=== PATIENT | male | born 1955 | race African-American/Black ===

== ENCOUNTER 2023-09-07 09:51 | Inpatient (IN) | payer MEDICARE, OTHER ==
[2023-09-07 12:46] LABS: #Eosinphils 0.1 thou/uL (0.0-0.7); #Monocytes 0.9 thou/uL (0.11-0.59); #Neutrophils 9.3 thou/uL (1.40-6.50); %Basophils 0.2 % (0.0-1.0); %Eosinophils 0.7 % (0.0-10.0); %Lymphocytes 14.4 % (21.0-51.0); %Monocytes 7.1 % (0.0-10.0); %Neutrophils 76.9 % (42.0-75.0); Hematocrit 29.2 % (42.0-52.0); Hemoglobin 9.5 g/dL (14.0-18.0); Mean Corpuscular HGB CONC 32.5 g/dL (32.0-36.0); Mean Corpuscular Hemoglobin 27.5 pg (27.0-31.0); Mean Corpuscular Volume 84.4 fl (78.0-98.0); Mean Platelet Volume 10.2 fL (7.4-10.4); Platelet Count 340 10x3/uL (130-400); RBC Distribution Width 13.9 % (11.5-14.5); Red Blood Cell (RBC) Count 3.46 mill/uL (4.70-6.10)
[2023-09-07 13:08] LABS: ALT (SGPT) 12 U/L (8-55); AST (SGOT) 37 U/L (5-34); Albumin 3.4 g/dL (3.4-4.8); Alkaline Phosphatase 76 U/L (40-110); Anion Gap 15 mmol/L (10-20); BUN (Urea Nitrogen) 13 mg/dL (8.4-25.7); Bilirubin, Total 0.9 mg/dL (0.2-1.2); Calc. Creatinine Clearance 0 mL/min (70-130); Carbon Dioxide 35 mmol/L (23-31); Chloride 87 mmol/L (98-107); Estimated GFR 88; Globulin 3.2 g/dL (2.4-3.5); Glucose 151 mg/dL (80-115); Protein, Total 6.6 g/dL (5.8-8.1); Sodium 135 mmol/L (136-145)
[2023-09-07 13:11] LABS: Troponin I 0.117 ng/mL (< 0.028)
[2023-09-07 13:12] LABS: Calcium 6.7 mg/dL (7.8-10.44); Critical Call Chemistry NUR.KR7@1311; Potassium 2.2 mmol/L (3.5-5.1)
[2023-09-07] MEDS ORDERED: Aspirin Chewable 81 MG TAB ONE (14:18)
[2023-09-07] MEDS ORDERED: Potassium Chloride 20 MEQ (100 mL) BAG ONE (14:18)
[2023-09-07] MEDS ORDERED: Potassium Chloride 20 MEQ TAB ONE (14:18)
[2023-09-07] MEDS ORDERED: Magnesium 2 GM/50 ML BAG (IN WATER) ONE (14:18)
[2023-09-07 14:19] LABS: Critical Call Chemistry NUR.LM21@1418; Magnesium 0.8 mg/dL (1.6-2.6)
[2023-09-07 14:35] LABS: CK (CPK) 1353 U/L (30-200)
[2023-09-07] MEDS ORDERED: Calcium Gluc 4.6 MEQ/10 ML (100 MG/ML) SLOW IVP ONE (14:49)
[2023-09-07 14:58] LABS: Magnesium 0.9 mg/dL (1.6-2.6)
[2023-09-07] MEDS ORDERED: Magnesium 2 GM/50 ML(in water) 2 GM in Premix 1 BAG IVPB SCH (15:00)
[2023-09-07] MEDS ORDERED: Sodium Chloride 0.9% 1,000 ML IV SCH (15:00)
[2023-09-07] MEDS ORDERED: Potassium Chloride 20 MEQ TAB PO SCH ×2 (15:15→20:00)
[2023-09-07] MEDS ORDERED: CALCIUM GLUC 1 GM/NS 50 ML 1 GM in Premix 1 BAG IVPB SCH (15:15)
[2023-09-07 15:35] LABS: Bilirubin Negative (Negative); Blood, Urine Trace (Negative); CAUTI Indications for Culture < 2yrs of age; Clarity Clear (Clear); Glucose, Urine (Dipstick) Normal (Negative); Ketone, Urine Negative (Negative); Leukocyte 250 Leu/uL (Negative); Nitrite Negative (Negative); Protein, Urine (Dipstick) Negative (Neg-Trace); RBC/HPF 0-3 HPF (0-3); Specific Gravity, Urine 1.003 (1.002-1.036); Squamous Epithelial None Seen HPF (0-3); Urobilinogen Normal mg/dL (Less than 2); WBC/HPF 0-3 HPF (0-3)
[2023-09-07 15:38] LABS: Bacteria/HPF 1+ HPF (None Seen)
[2023-09-07 15:39] LABS: Sperm/HPF 1+ HPF (None Seen)
[2023-09-07 15:40] LABS: Urine Culture Reflex Yes Yes
[2023-09-07] MEDS ORDERED: CALCIUM GLUC 1 GM (50 ML) BAG ONE (16:29)
[2023-09-07 17:12] LABS: Iron 24 ug/dL (65-175); Iron Binding Capacity, Total 230 mcg/dL (261-462)
[2023-09-07] MEDS: Sodium Chloride 0.9% 1,000 ML IV SCH (17:15)
[2023-09-07] MEDS ORDERED: Potassium Chloride 20 MEQ in Premix 1 BAG IVPB SCH (18:15)
[2023-09-07] MEDS ORDERED: Magnesium Sulfate 3 GM in Sodium Chloride 0.9% 100 ML IVPB SCH (18:15)
[2023-09-07] MEDS: CALCIUM GLUC 1 GM/NS 50 ML 1 GM in Premix 1 BAG IVPB SCH ×2 (18:42→20:38)
[2023-09-07] MEDS ORDERED: Ondansetron ODT 4 MG TAB SL PRN (19:00)
[2023-09-07] MEDS ORDERED: Ondansetron PF 4 MG/2 ML Vial IVP PRN (19:00)
[2023-09-07] MEDS ORDERED: Acetaminophen 325 MG TAB PO PRN (19:00)
[2023-09-07 19:54] LABS: Thyroid Stimulating Hormone 0.2629 uIU/mL (0.35-4.94)
[2023-09-07 19:55] LABS: Vitamin D, 25 Hydroxy 8.2 ng/ml (> 30.0)
[2023-09-07 20:00] LABS: Ferritin 130.82 ng/mL (22-322); Free T4 (Free Thyroxine) 0.94 ng/dL (0.70-1.48)
[2023-09-07 20:17] LABS: Magnesium 1.2 mg/dL (1.6-2.6)
[2023-09-07 20:18] LABS: Troponin I 0.155 ng/mL (< 0.028)
[2023-09-07 20:28] LABS: Critical Call Chemistry NUR.BR6@2027; Potassium 2.4 mmol/L (3.5-5.1)
[2023-09-07] MEDS ORDERED: Electrolyte Replacement Protocol 1 EACH FS SCH (20:45)
[2023-09-07] MEDS: Potassium Chloride 40 MEQ in Sodium Chloride 0.9% 250 ML 250 ML IVPB SCH (22:17)
[2023-09-08] MEDS: Sodium Chloride 0.9% 1,000 ML IV SCH
[2023-09-08 00:19] LABS: Anion Gap 13 mmol/L (10-20); BUN (Urea Nitrogen) 10 mg/dL (8.4-25.7); Calc. Creatinine Clearance 94 mL/min (70-130); Carbon Dioxide 35 mmol/L (23-31); Chloride 92 mmol/L (98-107); Estimated GFR 94; Glucose 162 mg/dL (80-115); Magnesium 1.5 mg/dL (1.6-2.6); Phosphorus 3.2 mg/dL (2.3-4.7); Sodium 138 mmol/L (136-145)
[2023-09-08 00:21] LABS: Critical Call Chemistry NUR.BR6@0021; Potassium 2.3 mmol/L (3.5-5.1)
[2023-09-08] MEDS ORDERED: Magnesium 2 GM/50 ML(in water) 2 GM in Premix 1 BAG IVPB SCH ×2 (00:30→08:00)
[2023-09-08] MEDS: Potassium Chloride 40 MEQ in Sodium Chloride 0.9% 250 ML 250 ML IVPB SCH (03:50)
[2023-09-08 04:55] VITALS: BMI 29.0
[2023-09-08 05:39] LABS: #Eosinphils 0.1 thou/uL (0.0-0.7); #Monocytes 0.5 thou/uL (0.11-0.59); #Neutrophils 6.2 thou/uL (1.40-6.50); %Basophils 0.5 % (0.0-1.0); %Eosinophils 0.9 % (0.0-10.0); %Lymphocytes 11.9 % (21.0-51.0); %Monocytes 6.5 % (0.0-10.0); %Neutrophils 79.8 % (42.0-75.0); Hematocrit 28.9 % (42.0-52.0); Hemoglobin 9.5 g/dL (14.0-18.0); Mean Corpuscular HGB CONC 32.9 g/dL (32.0-36.0); Mean Corpuscular Hemoglobin 27.8 pg (27.0-31.0); Mean Corpuscular Volume 84.5 fl (78.0-98.0); Mean Platelet Volume 10.4 fL (7.4-10.4); Platelet Count 295 10x3/uL (130-400); RBC Distribution Width 13.9 % (11.5-14.5); Red Blood Cell (RBC) Count 3.42 mill/uL (4.70-6.10); White Blood Cell (WBC) Count 7.8 10x3/uL (4.8-10.8)
[2023-09-08 06:01] LABS: Anion Gap 13 mmol/L (10-20); BUN (Urea Nitrogen) 10 mg/dL (8.4-25.7); Calc. Creatinine Clearance 107 mL/min (70-130); Carbon Dioxide 34 mmol/L (23-31); Chloride 96 mmol/L (98-107); Estimated GFR 97; Glucose 171 mg/dL (80-115); Magnesium 1.8 mg/dL (1.6-2.6); Sodium 140 mmol/L (136-145)
[2023-09-08 06:06] LABS: Calcium 6.8 mg/dL (7.8-10.44); Potassium 2.6 mmol/L (3.5-5.1)
[2023-09-08] MEDS: Enoxaparin 40 MG (0.4 mL) SYRINGE SC SCH (09:47)
[2023-09-08 10:38] LABS: Potassium 3.1 mmol/L (3.5-5.1)
[2023-09-08] MEDS ORDERED: Potassium Chloride 20 MEQ TAB PO SCH ×2 (11:30→21:15)
[2023-09-08 15:46] LABS: ALT (SGPT) 15 U/L (8-55); AST (SGOT) 43 U/L (5-34); Albumin 3.3 g/dL (3.4-4.8); Alkaline Phosphatase 72 U/L (40-110); Anion Gap 12 mmol/L (10-20); BUN (Urea Nitrogen) 10 mg/dL (8.4-25.7); Bilirubin, Total 0.8 mg/dL (0.2-1.2); Calc. Creatinine Clearance 107 mL/min (70-130); Calcium 7.4 mg/dL (7.8-10.44); Carbon Dioxide 33 mmol/L (23-31); Chloride 97 mmol/L (98-107); Estimated GFR 97; Globulin 3.6 g/dL (2.4-3.5); Glucose 190 mg/dL (80-115); Magnesium 1.8 mg/dL (1.6-2.6); Potassium 3.1 mmol/L (3.5-5.1); Protein, Total 6.9 g/dL (5.8-8.1); Sodium 139 mmol/L (136-145)
[2023-09-08 16:01] LABS: Potassium 3.1 mmol/L (3.5-5.1)
[2023-09-08] MEDS ORDERED: HumaLOG 300 UNITS/3 ML VIAL SC SCH (21:30)
[2023-09-09] MEDS ORDERED: Potassium Chloride 20 MEQ TAB PO SCH ×2 (09:00→14:15)
[2023-09-09] MEDS ORDERED: CALCIUM GLUC 1 GM/NS 50 ML 1 GM in Premix 1 BAG IVPB SCH (09:30)
[2023-09-09] MEDS: Lactated Ringer's 1,000 ML IV SCH ×2 (09:51→20:44)
[2023-09-09] MEDS: Enoxaparin 40 MG (0.4 mL) SYRINGE SC SCH (09:51)
[2023-09-09] MEDS: Magnesium Oxide 400 MG TAB PO SCH (09:51)
[2023-09-09 13:33] LABS: #Basophils 0.1 thou/uL (0.0-0.2); #Eosinphils 0.1 thou/uL (0.0-0.7); #Monocytes 0.5 thou/uL (0.11-0.59); #Neutrophils 5.4 thou/uL (1.40-6.50); %Basophils 0.8 % (0.0-1.0); %Eosinophils 1.9 % (0.0-10.0); %Lymphocytes 17.9 % (21.0-51.0); %Monocytes 7.1 % (0.0-10.0); %Neutrophils 71.8 % (42.0-75.0); Hematocrit 34.9 % (42.0-52.0); Mean Corpuscular HGB CONC 31.5 g/dL (32.0-36.0); Mean Corpuscular Hemoglobin 27.4 pg (27.0-31.0); Mean Corpuscular Volume 86.8 fl (78.0-98.0); Mean Platelet Volume 10.4 fL (7.4-10.4); Platelet Count 323 10x3/uL (130-400); RBC Distribution Width 14.1 % (11.5-14.5); Red Blood Cell (RBC) Count 4.02 mill/uL (4.70-6.10); White Blood Cell (WBC) Count 7.5 10x3/uL (4.8-10.8)
[2023-09-09 13:58] LABS: Anion Gap 18 mmol/L (10-20); BUN (Urea Nitrogen) 7 mg/dL (8.4-25.7); Calc. Creatinine Clearance 111 mL/min (70-130); Carbon Dioxide 24 mmol/L (23-31); Chloride 98 mmol/L (98-107); Estimated GFR 97; Glucose 185 mg/dL (80-115); Magnesium 1.6 mg/dL (1.6-2.6); Potassium 3.5 mmol/L (3.5-5.1); Sodium 136 mmol/L (136-145)
[2023-09-09] MEDS ORDERED: Magnesium 2 GM/50 ML(in water) 2 GM in Premix 1 BAG IVPB SCH (14:15)
[2023-09-10 03:19] LABS: Campy jejuni + coli by PCR Negative (Negative); STEC Shiga Toxin 1+2 Negative (Negative); Salmonella spp. by PCR Negative (Negative); Shigella spp + EIEC by PCR Negative (Negative)
[2023-09-10 05:53] LABS: #Basophils 0.1 thou/uL (0.0-0.2); #Eosinphils 0.2 thou/uL (0.0-0.7); #Monocytes 0.5 thou/uL (0.11-0.59); #Neutrophils 4.7 thou/uL (1.40-6.50); %Basophils 0.9 % (0.0-1.0); %Eosinophils 2.7 % (0.0-10.0); %Monocytes 6.7 % (0.0-10.0); %Neutrophils 69.4 % (42.0-75.0); Hematocrit 31.9 % (42.0-52.0); Hemoglobin 10.2 g/dL (14.0-18.0); Mean Corpuscular Hemoglobin 27.4 pg (27.0-31.0); Mean Corpuscular Volume 85.8 fl (78.0-98.0); Mean Platelet Volume 9.6 fL (7.4-10.4); Platelet Count 343 10x3/uL (130-400); RBC Distribution Width 14.1 % (11.5-14.5); Red Blood Cell (RBC) Count 3.72 mill/uL (4.70-6.10); White Blood Cell (WBC) Count 6.7 10x3/uL (4.8-10.8)
[2023-09-10] MEDS: Lactated Ringer's 1,000 ML IV SCH ×2 (05:58→14:42)
[2023-09-10 06:29] LABS: Anion Gap 15 mmol/L (10-20); BUN (Urea Nitrogen) 6 mg/dL (8.4-25.7); CK (CPK) 981 U/L (30-200); Calc. Creatinine Clearance 119 mL/min (70-130); Calcium 8.2 mg/dL (7.8-10.44); Carbon Dioxide 31 mmol/L (23-31); Chloride 98 mmol/L (98-107); Estimated GFR 99; Glucose 128 mg/dL (80-115); Magnesium 1.6 mg/dL (1.6-2.6); Sodium 141 mmol/L (136-145)
[2023-09-10] MEDS ORDERED: Magnesium 2 GM/50 ML(in water) 2 GM in Premix 1 BAG IVPB SCH (08:45)
[2023-09-10] MEDS ORDERED: Potassium Chloride 20 MEQ TAB PO SCH ×2 (08:45→17:00)
[2023-09-10] MEDS: Enoxaparin 40 MG (0.4 mL) SYRINGE SC SCH (09:12)
[2023-09-10] MEDS: Magnesium Oxide 400 MG TAB PO SCH (09:17)
[2023-09-10] MEDS: Potassium Chloride 20 MEQ TAB PO SCH (17:39)
[2023-09-11] MEDS: Lactated Ringer's 1,000 ML IV SCH ×3 (01:55→22:14)
[2023-09-11 06:26] LABS: #Basophils 0.1 thou/uL (0.0-0.2); #Eosinphils 0.2 thou/uL (0.0-0.7); #Monocytes 0.5 thou/uL (0.11-0.59); %Eosinophils 2.7 % (0.0-10.0); %Lymphocytes 20.4 % (21.0-51.0); %Monocytes 7.7 % (0.0-10.0); Hematocrit 31.3 % (42.0-52.0); Hemoglobin 10.1 g/dL (14.0-18.0); Mean Corpuscular HGB CONC 32.3 g/dL (32.0-36.0); Mean Corpuscular Hemoglobin 27.4 pg (27.0-31.0); Mean Corpuscular Volume 85.1 fl (78.0-98.0); Mean Platelet Volume 9.6 fL (7.4-10.4); Platelet Count 368 10x3/uL (130-400); RBC Distribution Width 13.7 % (11.5-14.5); Red Blood Cell (RBC) Count 3.68 mill/uL (4.70-6.10); White Blood Cell (WBC) Count 5.9 10x3/uL (4.8-10.8)
[2023-09-11 06:42] LABS: ALT (SGPT) 16 U/L (8-55); AST (SGOT) 33 U/L (5-34); Albumin 3.3 g/dL (3.4-4.8); Alkaline Phosphatase 73 U/L (40-110); Anion Gap 13 mmol/L (10-20); BUN (Urea Nitrogen) 5 mg/dL (8.4-25.7); Calc. Creatinine Clearance 120 mL/min (70-130); Calcium 8.2 mg/dL (7.8-10.44); Carbon Dioxide 29 mmol/L (23-31); Chloride 100 mmol/L (98-107); Estimated GFR 100; Globulin 3.8 g/dL (2.4-3.5); Glucose 131 mg/dL (80-115); Magnesium 1.5 mg/dL (1.6-2.6); Potassium 3.4 mmol/L (3.5-5.1); Protein, Total 7.1 g/dL (5.8-8.1); Sodium 139 mmol/L (136-145)
[2023-09-11] MEDS: Potassium Chloride 20 MEQ TAB PO SCH ×3 (07:49→17:36)
[2023-09-11] MEDS: Magnesium Oxide 400 MG TAB PO SCH (07:49)
[2023-09-11] MEDS: Enoxaparin 40 MG (0.4 mL) SYRINGE SC SCH (07:49)
[2023-09-11] MEDS ORDERED: Magnesium 2 GM/50 ML(in water) 2 GM in Premix 1 BAG IVPB SCH (08:00)
[2023-09-11] MEDS ORDERED: NIFEdipine XL 30 MG ER.TAB PO SCH (09:15)
[2023-09-11] MEDS ORDERED: Carvedilol 3.125 MG TAB PO SCH (09:30)
[2023-09-11] MEDS ORDERED: Losartan 25 MG TAB PO SCH (09:30)
[2023-09-11] MEDS: Carvedilol 3.125 MG TAB PO SCH (17:36)
[2023-09-12 06:37] LABS: #Basophils 0.1 thou/uL (0.0-0.2); #Eosinphils 0.2 thou/uL (0.0-0.7); #Monocytes 0.5 thou/uL (0.11-0.59); %Basophils 0.8 % (0.0-1.0); %Eosinophils 2.5 % (0.0-10.0); %Lymphocytes 21.4 % (21.0-51.0); %Monocytes 8.5 % (0.0-10.0); %Neutrophils 66.5 % (42.0-75.0); Hematocrit 30.2 % (42.0-52.0); Hemoglobin 9.6 g/dL (14.0-18.0); Mean Corpuscular HGB CONC 31.8 g/dL (32.0-36.0); Mean Corpuscular Volume 84.8 fl (78.0-98.0); Mean Platelet Volume 9.7 fL (7.4-10.4); Platelet Count 363 10x3/uL (130-400); RBC Distribution Width 13.9 % (11.5-14.5); Red Blood Cell (RBC) Count 3.56 mill/uL (4.70-6.10)
[2023-09-12 07:01] LABS: ALT (SGPT) 19 U/L (8-55); AST (SGOT) 26 U/L (5-34); Albumin 3.1 g/dL (3.4-4.8); Alkaline Phosphatase 68 U/L (40-110); Anion Gap 11 mmol/L (10-20); BUN (Urea Nitrogen) 7 mg/dL (8.4-25.7); Bilirubin, Total 0.6 mg/dL (0.2-1.2); CK (CPK) 342 U/L (30-200); Calc. Creatinine Clearance 110 mL/min (70-130); Calcium 8.4 mg/dL (7.8-10.44); Carbon Dioxide 27 mmol/L (23-31); Chloride 105 mmol/L (98-107); Estimated GFR 97; Globulin 3.4 g/dL (2.4-3.5); Glucose 141 mg/dL (80-115); Magnesium 1.5 mg/dL (1.6-2.6); Potassium 4.1 mmol/L (3.5-5.1); Protein, Total 6.5 g/dL (5.8-8.1); Sodium 139 mmol/L (136-145)
[2023-09-12] MEDS ORDERED: Magnesium 2 GM/50 ML(in water) 2 GM in Premix 1 BAG IVPB SCH (08:00)
[2023-09-12] MEDS ORDERED: Losartan 25 MG TAB PO SCH (09:00)
[2023-09-12] MEDS ORDERED: NIFEdipine XL 30 MG ER.TAB PO SCH (09:00)
[2023-09-12] MEDS: Lactated Ringer's 1,000 ML IV SCH (09:20)
[2023-09-12] MEDS: Magnesium Oxide 400 MG TAB PO SCH (09:20)
[2023-09-12] MEDS: Enoxaparin 40 MG (0.4 mL) SYRINGE SC SCH (09:20)
[2023-09-12] MEDS: Carvedilol 3.125 MG TAB PO SCH (09:21)
[2023-09-12] MEDS: Potassium Chloride 20 MEQ TAB PO SCH (09:21)
[2023-09-12] MEDS ORDERED: Electrolyte Replacement Protocol 1 EACH FS SCH (10:15)
[2023-09-12 11:23] VITALS: TEMP 97.9
[2023-09-12 11:24] VITALS: BP 171/89
[2023-09-12 11:41] LABS: Magnesium 2.5 mg/dL (1.6-2.6)
[2023-09-12] MEDS ORDERED: metFORMIN 500 MG TAB PO SCH (21:00)
[2023-09-12] MEDS ORDERED: Atorvastatin Calcium 10 MG TAB PO SCH (21:00)
[2023-09-13] MEDS ORDERED: Aspirin 81 mg Enteric Coated Tablet PO SCH (09:00)
== END 2023-09-12 14:58 | disposition home or self-care (01) | DRG 558 ==
LOC: ERS 09:51 → ERHOLD 14:22 → OBSVTOIN 14:58 → 2NO 18:51
PROVIDERS: ADMIT Hospitalist; ATTEND Family Medicine
DX: M62.82 Rhabdomyolysis (principal); E87.3 Alkalosis; Z66 Do not resuscitate; A08.4 Viral intestinal infection, unspecified; E83.42 Hypomagnesemia; E87.6 Hypokalemia; E11.9 Type 2 diabetes mellitus without complications; I10 Essential (primary) hypertension; I25.10 Atherosclerotic heart disease of native coronary artery without angina pectoris; H54.7 Unspecified visual loss; E83.51 Hypocalcemia; D64.9 Anemia, unspecified; D72.829 Elevated white blood cell count, unspecified; Z79.82 Long term (current) use of aspirin; Z79.4 Long term (current) use of insulin; Z79.84 Long term (current) use of oral hypoglycemic drugs; Z79.899 Other long term (current) drug therapy
CPT/HCPCS: 36415; 36416; 71045; 80048; 80053; 81001; 82306; 82310; 82533; 82550; 82728; 83540; 83550; 83735; 83880; 84100; 84439; 84443; 84484; 85025; 87040; 87086; 87505; 93005; 93010; 94760; 96365; 96375; J0613; J1650; J1815; J3475; J3480; J3490; J7050; J7120